=== PATIENT | male | born 1985 | race Caucasian/White ===

== ENCOUNTER → 2020-03-11 12:02 | Outpatient (CLI) | payer OTHER, SELFPAY ==
--- NOTE | ~2020-03-11 | XR_ITS ---
EXAMINATION: XR patella LT DATE: 03/11/2020 12:32 INDICATION: Pain distal to left patella. TECHNIQUE: 2 views of left patella were obtained. COMPARISON: None. FINDINGS: Bone alignment is normal. No fracture. There is mild osteoarthritis of patellofemoral geri rtment. No knee joint effusion. IMPRESSION: 1. Mild left knee osteoarthritis. Reviewed, dictated and finalized at location A.
--- NOTE | ~2020-03-11 | XR_ITS ---
EXAMINATION: XR knee LT min 4V DATE: 03/11/2020 12:31 INDICATION: Left knee pain. TECHNIQUE: 4 views of left knee were obtained. COMPARISON: None. FINDINGS: Bone alignment is normal. No fracture. There is mild tricompartmental osteoarthritis. No kn ee joint effusion. IMPRESSION: 1. Mild left knee osteoarthritis. Reviewed, dictated and finalized at location A.
== END ==
PROVIDERS: PCP Internal Medicine; Visit Provider Internal Medicine
DX: M17.12 Unilateral primary osteoarthritis, left knee (principal)
CPT/HCPCS: 73560; 73564

== ENCOUNTER 2020-05-25 08:46 | Emergency (ER) | payer OTHER, SELFPAY ==
--- NOTE | ~2020-05-25 | XR_ITS ---
EXAMINATION: XR chest 2V EXAM DATE: 05/25/2020 09:42 INDICATION: Mid chest pain. TECHNIQUE: Frontal and lateral projections of the chest obtained and reviewed. There is no prior julien dy for comparison. FINDINGS: The lungs are clear. There are no pleural effusions. The cardiomediastinal silhouette is within normal limits. There is no pneumothorax suspected. The bones and soft tissues are unremarkab le. IMPRESSION: Normal chest x-ray exam. Reviewed, dictated and finalized at location B. IMPRESSION: Normal chest x-ray exam.
--- NOTE | 2020-05-25 08:57 | ED.ABDPAIN ---
HPI - Abdominal Pain General Chief Complaint: Abdominal Pain Stated Complaint: epigastric pain Time Seen by Provider: 05/25/20 08:56 Source: patient Mode of arrival: ambulatory Limitations: no limitations History of Present Illness HPI narrative: Patient is a 34-year-old male who presents for evaluation epigastric discomfort and chest pain. Patient states discomfort have been present over the past 24 hours. Pain initially began yesterday morning, felt in the epigastrium after patient ate breakfast and took some of his vitamin supplements. Patient states he has been able to tolerate oral intake, feels improved when he is up and moving, but pain worsens when he is laying flat or when he inspires. He denies cough or shortness of breath. He denies nausea or vomiting. He states he feels as if he has a bubble in his lower chest. No recent car or air travel. No fever, chills, congestion. No history of recent surgeries. Related Data Allergies Allergy/AdvReac Type Severity Reaction Status Date / Time Penicillins AdvReac Mild Diarrhea Verified 03/17/20 16:33 Review of Systems Review of Systems: Narrative: CONSTITUTIONAL: Denies fever, chills, or sweats. EYES: Denies visual changes, redness, or discharge. ENT: Denies rhinorrhea, congestion, sore throat, or otalgia. CARDIOVASCULAR: Reports chest pain without palpitations or edema RESPIRATORY: Denies cough or dyspnea. GASTROINTESTINAL: Reports epigastric abdominal pain, nausea, vomiting, or diarrhea. GENITOURINARY: Denies dysuria or hematuria. SKIN: Denies rash or itching. MUSCULOSKELETAL: Denies back pain, joint pain, or myalgia. NEUROLOGIC: Denies headache, numbness, or weakness. REPLACED BY [facility] Past Medical History Medical History (Updated 05/25/20 @ 11:15 by Sandhya Marcum MD) Hypogonadotropic hypogonadism in male Primary localized osteoarthritis of left knee Family History Family History (Updated 04/17/14 @ 07:13 by DOCTOR UNKNOWN) Mother Family history of multiple sclerosis Social History Social History Smoking status: Never smoker Second hand tobacco smoke exposure: No Alcohol intake: never Exam Narrative: Exam Narrative: GENERAL: Awake, alert, conversant HEAD: Normocephalic, atraumatic. EYES: PERRLA and EOMI. ENT: Nares clear, no rhinorrhea or epistaxis. Mucous membranes moist. NECK: Supple. CHEST: No respiratory distress, breathing even and non labored, no chest wall tenderness HEART: Regular rate, sinus rhythm ABDOMEN:Non distended, non tender, no epigastric tenderness EXTREMITIES: Normal range of motion. No edema. SKIN: Warm, dry, no rash. NEURO:No focal deficits. Alert and oriented x3 Course Vital Signs Vital signs: Vital Signs Temperature 36.9 C 05/25/20 08:59 Pulse Rate 85 05/25/20 08:59 Respiratory Rate 17 05/25/20 08:59 Blood Pressure 126/74 05/25/20 08:59 Pulse Oximetry 100 05/25/20 08:59 Temperature 36.9 C 05/25/20 08:59 Pulse Rate 85 05/25/20 08:59 Respiratory Rate 17 05/25/20 08:59 Blood Pressure 126/74 05/25/20 08:59 Pulse Oximetry 100 05/25/20 08:59 MDM - Abdominal Pain MDM Narrative Medical decision making narrative: Patient's EKG and labs are without significant high risk changes. Patient does have an S1Q3T3, thus I did obtain a d-dimer which is not elevated. Patient without any hypoxia, no risk factors for DVT, low risk Via Wells criteria thus we will not obtain a CTA given dimer is negative. Cardiac risk factors reviewed. Patient is felt low risk for ACS and reasonable for further risk stratification testing as an outpatient. Pain was not sudden or maximal or onset without tearing or ripping quality. Very much within a 4 to 6-hour time window given symptoms have been present over 24 hours and initial troponin is negative. No other signs or symptoms to suggest aortic dissection. No pneumonia seen on evaluation today. Patient able to tole
[2020-05-25 08:59] VITALS: BP 126/74; PULSE 85; RESP 17; TEMP 36.9; O2SAT 100
--- NOTE | 2020-05-25 09:16 | ECG_ITS ---
Measurements Intervals Quinter Rate: 78 P: 54 DC: 184 QRS: 24 QRSD: 102 T: -2 QT: 347 QTc: 397 Interpretive Statements SINUS RHYTHM BORDERLINE ST-T WAVE ABNORMALITY- INFERIOR LEADS BORDERLINE ECG Electronically Signed On 05-25-2020 9:54:53 CDT by Bhavesh Addison D.O.
[2020-05-25] MEDS: BELLADONNA ALK/PHENOB ELIX 10 ML, MAG HYDROX/ALUMINUM HYD/SIMETH 30 ML, LIDOCAINE HCL 2... PO (09:31)
--- NOTE | 2020-05-25 09:34 | PC.NURSE ---
Patient to X-ray.
[2020-05-25] MEDS: FAMOTIDINE 20 MG/2 ML VIAL IV PUSH (09:56)
[2020-05-25 10:03] LABS: Basophils Absolute Auto 0.1 K/mm3 (0.0-0.1); Basophils Percent Auto 0.6 % (0.2-1.2); Eosinophils Absolute Auto 0.1 K/mm3 (0-0.3); Eosinophils Percent Auto 1.8 % (0-4.4); Hematocrit 48.9 % (42.0-52.0); Hemoglobin 16.7 g/dL (14.0-18.0); Immature Granulocyte Absolute 0.03 K/mm3 (0.00-0.031); Immature Granulocyte Percent A 0.4 % (0-0.5); Lymphocytes Absolute Auto 0.93 K/mm3 (0.9-3.2); Lymphocytes Percent Auto 11.7 % (18.3-44.2); Mean Corpuscular HGB Conc 34.2 g/dl (32-36); Mean Corpuscular Hemoglobin 30.8 pg (26-34); Mean Corpuscular Volume 90.2 fl (80-100); Mean Platelet Volume 10.4 fl (7.4-10.4); Monocytes Percent Auto 12.6 % (2.6-8.5); Neutrophils Absolute Auto 5.8 K/mm3 (1.3-6.7); Neutrophils Percent Auto 72.9 % (45.5-73.1); Platelet Count Result 217 k/mm3 (150-375); Red Blood Count 5.42 M/mm3 (4.6-6.20); White Blood Count 7.9 K/mm3 (4.5-10.0)
[2020-05-25 10:15] LABS: Alanine Aminotransferase 117 U/L (4-50); Albumin Level 4.5 g/dL (3.5-5.1); Alkaline Phosphatase 57 U/L (38-126); Anion Gap 7 mmol/L (8-16); Aspartate Amino Transferase 86 U/L (17-59); Bilirubin,Total 0.5 mg/dL (0.2-1.3); Blood Urea Nitrogen 21 mg/dL (9-20); Calcium 9.6 mg/dL (8.4-10.2); Carbon Dioxide 29 mmol/L (22-30); Chloride 100 mmol/L (98-107); Estimated CRCL calculation 462 ml/min; Estimated Glomerular Filt Rate 58; Glucose 86 mg/dL (75-110); Lipase 131 U/L (23-300); Potassium 4.3 mmol/L (3.4-5.0); Sodium 136 mmol/L (137-145)
[2020-05-25 10:18] LABS: INR 1.1; Partial Thromboplastin Time 27.5 SECONDS (22.3-36.8); Prothrombin Time 13.4 Seconds (11.1-14.7)
[2020-05-25 10:21] LABS: D Dimer 0.41 ug/mL (<0.48)
[2020-05-25 10:26] LABS: Troponin I < 0.012 ng/mL (0.000-0.034)
[2020-05-25 11:22] VITALS: BP 128/80; PULSE 80; RESP 18; TEMP 36.7; O2SAT 99
== END 2020-05-25 11:23 | disposition home or self-care (01) ==
PROVIDERS: Emergency Provider Emergency Medicine; PCP Internal Medicine
DX: R10.13 Epigastric pain (principal); M17.12 Unilateral primary osteoarthritis, left knee; E23.0 Hypopituitarism
CPT/HCPCS: 36415; 71046; 80053; 83690; 84484; 85025; 85380; 85610; 85730; 93005; 96374; 99284; A9270

== ENCOUNTER 2020-06-16 01:20 | Outpatient (CLI) | payer OTHER, SELFPAY ==
[2020-06-16 19:05] LABS: SARS-CoV-2 RNA PCR Negative
== END 2020-06-16 01:21 | disposition home or self-care (01) ==
LOC: ANHCOVIDDT 01:20
PROVIDERS: PCP Internal Medicine; Visit Provider Internal Medicine Gastroenterology
DX: Z01.812 Encounter for preprocedural laboratory examination (principal); Z20.828 Contact with and (suspected) exposure to other viral communicable diseases
CPT/HCPCS: 87635; C9803; U0003

== ENCOUNTER 2020-06-18 01:18 | Day surgery (SDC) | payer OTHER, SELFPAY ==
[2020-06-12 08:33] VITALS: BMI 34.4
--- NOTE | 2020-06-17 08:55 | WPDANESEPPF ---
Anes - Initial Pre Proc Eval Procedure: Operation Date: 06/18/20 10:00 Proposed Procedures p Esophagogastroduodenoscopy - Kannan Moya MD Date/Time: 06/17/20 08:55 Surgeon: Kannan Moya MD Pre Op Diagnosis: dysphagia Patient Data Age: 34 Gender: M Height: 1.8 m Weight: 112 kg Allergies Allergy/AdvReac Type Severity Reaction Status Date / Time Penicillins AdvReac Mild Diarrhea Verified 06/18/20 09:32 Home Medications Medication Instructions Recorded Confirmed Type cyclobenzaprine [Flexeril] 5 mg PO HS 06/12/20 06/18/20 History Patient hx anesthesia problems: none Family hx anesthesia problems: none PMFSH Past Medical History Medical History (Updated 06/17/20 @ 08:55 by Giuseppe Sterling DO) GERD (gastroesophageal reflux disease) Hiccups Hypogonadotropic hypogonadism in male ANILA (obstructive sleep apnea) Primary localized osteoarthritis of left knee Family History Family History (Updated 04/17/14 @ 07:13 by DOCTOR UNKNOWN) Mother Family history of multiple sclerosis Social History Social History Smoking status: Never smoker Second hand tobacco smoke exposure: No Alcohol intake: never Substance use: never Substance use type: does not use Spiritual care concerns: No Anes - Eval Final PreProcedure Day of Procedure 06/17/20 08:55 Patient weight: obese Heart: regular rate and rhythm Lungs: clear to auscultation and normal air movement Airway: Mallampati scale class II Neurological: alert and oriented Last oral intake: >/= 8 hours ASA classification: III Emergent: no Anesthetic plan: proceed Anesthesia type and monitoring: general GIVS and standard monitoring Informed Consent: The patient's anesthetic plan and its attendant risks and benefits were discussed with the patient/family/POA. Questions were solicited and answers provided to the satisfaction of the patient/family/POA.
[2020-06-18 09:34] VITALS: BP 121/50; PULSE 78; RESP 18; TEMP 36.8; O2SAT 97
[2020-06-18] MEDS: LACTATED RINGERS 1,000 ML 150 ML IV CONT (09:41)
--- NOTE | 2020-06-18 10:17 | P.CONGI_ITS ---
Assessment and Plan Assessment and plan (1) Dysphagia: Code(s): R13.10 - Dysphagia, unspecified Status: Acute Assessment and Plan: Patient has gradually improving difficulty swallowing. Symptoms appear most consistent with pill esophagitis . Likely related to pill remain and mid esophagus. Plan is for EGD to evaluate and exclude any ongoing disease. Further recommendations may be given after endoscopy. Saw food advancing to regular diet in an acids are encouraged in the interim. GI Consult Note Consult date/time: 06/18/20 10:17 HPI: David Romero is a 34 year old male Complains of hiccups that lasted for several weeks. Symptoms seemed to begin after taking a body building pill. Patient subsequently had discomfort in the chest on swallowing. Associated with regurgitation. Hiccups occurred for approximately 10 days. States he had a pill stuck in the low mid chest. He subsequent to that developed painful swallowing. Patient initially treated with Prilosec sac and steroids for 1 week. He states the symptoms have gradually improved. He has minimal dys phagia. Minimal discomfort at present. Denies any weight loss or bleeding. He presents today for EGD to evaluate more thoroughly. [facility] Past Medical History Medical History GERD (gastroesophageal reflux disease) Hiccups Hypogonadotropic hypogonadism in male ANILA (obstructive sleep apnea) Primary localized osteoarthritis of left knee Family History Family History (Updated 04/17/14 @ 07:13 by DOCTOR UNKNOWN) Mother Family history of multiple sclerosis Social History Social History Smoking status: Never smoker Second hand tobacco smoke exposure: No Alcohol intake: never Substance use: never Substance use type: does not use Spiritual care concerns: No Meds Home Medications and Allergies Home Medications Medication Instructions Recorded Confirmed Type cyclobenzaprine [Flexeril] 5 mg PO HS 06/12/20 06/18/20 History Allergies Allergy/AdvReac Type Severity Reaction Status Date / Time Penicillins AdvReac Mild Diarrhea Verified 06/18/20 09:32 Vital Signs Vital Signs - 24 hr 06/18/20 09:34 Temperature 98.2 F Pulse Rate 78 Respiratory Rate 18 Blood Pressure 121/50 L Pulse Oximetry 97 Exam Narrative: Exam Narrative: Physical exam reveals patient to be alert. Vital signs stable. HEENT exam unremarkable. Lungs are clear to auscultation and percussion. Heart is without murmur or extra sounds. Abdominal exam bowel sounds are present soft nontender with no organomegaly. Digital external rectal exam deferred at this time.
[2020-06-18 10:48] VITALS: BP 105/73; PULSE 82; RESP 22; O2SAT 99
[2020-06-18 10:58] VITALS: BP 101/74; PULSE 77; RESP 17; O2SAT 99
[2020-06-18 11:07] VITALS: BP 108/65; PULSE 78; RESP 21; O2SAT 98
== END 2020-06-18 11:23 | disposition home or self-care (01) ==
PROVIDERS: PCP Internal Medicine; Visit Provider Internal Medicine Gastroenterology
PROC: 0DJ08ZZ Inspection of Upper Intestinal Tract, Via Natural or Artificial Opening Endoscopic (ICD-10-PCS; CPT 43235; principal; 2020-06-18 10:00)
DX: K21.00 Gastro-esophageal reflux disease with esophagitis, without bleeding (principal); Q39.4 Esophageal web; K22.10 Ulcer of esophagus without bleeding; G47.33 Obstructive sleep apnea (adult) (pediatric)
CPT/HCPCS: 43239; 43450; 88305; 88312; J7120

== ENCOUNTER 2021-07-21 13:20 | Outpatient (CLI) | payer OTHER, SELFPAY ==
--- NOTE | ~2021-07-21 | XR_ITS ---
EXAMINATION: XR hand RT min 3V DATE: 07/21/2021 14:00 INDICATION: Right hand osteoarthritis. TECHNIQUE: 3 views of right hand were obtained. COMPARISON: None. FINDINGS: Bone alignment is normal. No fracture. There is mild osteoarthritis of first carpometacarpa l joint and first metacarpophalangeal joint. IMPRESSION: 1. Mild polyarticular osteoarthritis. Reviewed, dictated and finalized at location A. ANALYST
== END 2021-07-21 13:21 | disposition home or self-care (01) ==
PROVIDERS: Visit Provider Plastic Surgery
DX: M19.041 Primary osteoarthritis, right hand (principal)
CPT/HCPCS: 73130

== ENCOUNTER → 2021-09-30 16:12 | Outpatient (CLI) | payer OTHER, SELFPAY ==
--- NOTE | ~2021-09-30 | MR_ITS ---
EXAMINATION: MR hand RT wo con DATE: 09/30/2021 17:11 INDICATION: Generalized right hand swelling with pain making a fist since third digit trigger finger surgery TECHNIQUE: Magnetic resonance imaging (MRI) of the right hand was performed without intravenous contr ast to include the metacarpals and digits. Sequences included axial, sagittal and coronal T1-weighted FSE and T2-weighted FS FSE and sagittal and coronal fluid sensitive FSE STIR. COMPARISON: Right hand radiographs dated 07/21/2021 FINDINGS: Bone alignment is normal. No fracture or pathologic marrow replacing process. Joint spaces appear rel atively preserved with no joint effusions. There is mild thickening of the radial collateral ligament at the third metacarpophalangeal joint. The remaining collateral ligament complex at the metacarpoph alangeal and interphalangeal joints appear normal. There is diffuse thickening of the A1 flexor pulle y palmar to the third carpophalangeal joint consistent with likely scarring related to prior reported carlos release. There is a sagittally oriented longitudinal split tear extending for approximately 2 .5 cm proximal to distal along the flexor digitorum superficialis tendon to the third digit also cent ered at level of the metacarpophalangeal joint. There is fusiform thickening of the flexor digitorum profundus tendon distally at the level of the mid diaphysis of the third proximal phalanx. Remainder of the visualized flexor and extensor tendons are normal. Intrinsic musculature of the hand is unrema rkable. IMPRESSION: 1. Thickening of the A1 carols at the level of the third metacarpophalangeal joint consistent with ei ther stenosing tenosynovitis or scarring related to subsequent reported release. 2. short longitudinal split tear of the third digit flexor digitorum superficialis tendon at the same level of the metacarpophalangeal joint. 3. Fusiform thickening of the more distal third flexor digitorum profundus tendon at the level of the mid diaphysis of the proximal phalanx. Reviewed, dictated and finalized at location A. TESTER IMPRESSION: 1. Thickening of the A1 carlos at the level of the third metacarpophalangeal edmundo int consistent with either stenosing tenosynovitis or scarring related to subse quent reported release. 2. short longitudinal split tear of the third digit flexor digitorum superficia lis tendon at the same level of the metacarpophalangeal joint. 3. Fusiform thickening of the more distal third flexor digitorum profundus tend on at the level of the mid diaphysis of the proximal phalanx.
== END ==
PROVIDERS: Visit Provider Plastic Surgery
DX: S66.112A Strain of flexor muscle, fascia and tendon of right middle finger at wrist and hand level, initial encounter (principal)
CPT/HCPCS: 73218

== ENCOUNTER 2021-11-05 11:15 | Emergency (ER) | payer OTHER, SELFPAY ==
[2021-11-05 11:20] VITALS: BP 126/65; PULSE 84; RESP 20; TEMP 36.8; O2SAT 99
--- NOTE | 2021-11-05 13:11 | ED.MALEGU ---
HPI - Male Genitourinary General Chief complaint: Urogenital-Male Stated complaint: Vomiting/Nausea Time Seen by Provider: 11/05/21 13:11 Source: patient and RN notes reviewed Mode of arrival: ambulatory Limitations: no limitations History of Present Illness HPI Narrative: 35-year-old male presented for complaint of concern for dehydration due to dark urine. He states he drinks 2 gallons of water a day. Endorses one episode of vomiting about 2 nights ago. This was followed by intermittent nausea and fevers/sweats. Endorses intermittent cramping and occasional shortness of breath. States last week he had an episode of abdominal pain. Denies cough, chest pain, diarrhea, dysuria or concern for std. Denies increase in ibuprofen or muscle building supplements. Denies sick contacts. He is not vaccinated for flu or Covid. Related Data Allergies Allergy/AdvReac Type Severity Reaction Status Date / Time Penicillins AdvReac Mild Diarrhea Verified 11/05/21 11:39 Review of Systems Review of Systems: CONSTITUTIONAL: Endorses body aches, fever, chills, sweats. CARDIOVASCULAR: Denies chest pain, palpitations, or edema. RESPIRATORY: Denies cough or dyspnea. GASTROINTESTINAL: Endorses abdominal pain, nausea, vomiting, or diarrhea. GENITOURINARY: Denies dysuria, frequency, urgency, hematuria, discharge, flank pain SKIN: Denies rash, itching, or wounds. MUSCULOSKELETAL: Denies back pain or myalgia. [facility] Past Medical History Medical History GERD (gastroesophageal reflux disease) erosive Esohpagealitis Esophageal web GERD Dr. Kannan Moya 06/18/2020 Hiccups Hypogonadotropic hypogonadism in male ANILA (obstructive sleep apnea) Primary localized osteoarthritis of left knee Family History Family History Mother Family history of multiple sclerosis Social History Social History Smoking status: Never smoker Second hand tobacco smoke exposure: No Alcohol intake: never Substance use: never Substance use type: does not use Spiritual care concerns: No Comments At time of signature, I have reviewed and agree with nursing past medical, surgical, social and family history unless otherwise noted. Please see nursing chart for further information. There is no relevant family history pertinent to the presenting complaint Exam Narrative: GENERAL: Well-appearing and in no acute distress. HEAD: Normocephalic EYES: EOMI. . ENT: Mucous membranes pink and moist. NECK: Normal AROM. Supple. CHEST: No respiratory distress. Clear to auscultation. HEART: Regular rate and rhythm. ABDOMEN: Soft, nontender, nondistended, normal active bowel sounds. No CVA tenderness MUSCULOSKELETAL: No bony tenderness. SKIN: Sweaty, Warm NEURO: No focal deficits. Alert and oriented x3. Gait steady. PSYCH: Normal affect. No signs of depression or anxiety. Course Course Emergency Course: Patient is aware of diagnosis, understands and agrees to treatment plan. Anticipatory guidance given. Patient agrees to follow-up as directed and is aware of reasons to seek care at the emergency department. Portions of this record may have been created with voice recognition software Level of Care: Express Care Visit Vital Signs Vital signs: Vital Signs Temperature 98.3 F 11/05/21 11:20 Pulse Rate 84 11/05/21 11:20 Respiratory Rate 20 11/05/21 11:20 Blood Pressure 126/65 11/05/21 11:20 Pulse Oximetry 99 11/05/21 11:20 Temperature 98.3 F 11/05/21 11:20 Pulse Rate 84 11/05/21 11:20 Respiratory Rate 20 11/05/21 11:20 Blood Pressure 126/65 11/05/21 11:20 Pulse Oximetry 99 11/05/21 11:20 Reviewed MDM - Male Genitourinary MDM Narrative Medical decision making narrative: flu and covid neg Exam findings and UA show no acute concerns ; no hematuria. pa
== END 2021-11-05 14:05 | disposition home or self-care (01) ==
PROVIDERS: Emergency Provider Nurse Practitioner Family
DX: R82.90 Unspecified abnormal findings in urine (principal); R25.2 Cramp and spasm; Z20.822 Contact with and (suspected) exposure to COVID-19; K21.9 Gastro-esophageal reflux disease without esophagitis; G47.33 Obstructive sleep apnea (adult) (pediatric); M17.12 Unilateral primary osteoarthritis, left knee
CPT/HCPCS: 81003; 87426; 87804; 99213; C9803; G0463

== ENCOUNTER 2021-12-29 19:41 | Emergency (ER) | payer OTHER, SELFPAY ==
[2021-12-29 19:59] VITALS: BP 133/89; PULSE 83; RESP 16; TEMP 36.7; O2SAT 98
--- NOTE | 2021-12-29 20:15 | ED.LOWEXIN ---
HPI - Extremity Injury (Lower) General Chief Complaint: Extremity Injury, Lower Stated Complaint: leg injury Time Seen by Provider: 12/29/21 20:12 Source: patient Mode of arrival: ambulatory Limitations: no limitations History of Present Illness HPI Narrative: Patient is a 36-year-old male who presents the ED with report of left posterior leg pain. Patient reports he was playing softball tonight and planted his L foot to begin running when he immediately felt a pop in his left hamstring. He felt extreme pain and has been unable to ambulate or bear weight on his left lower extremity since then. Patient has not taken anything for pain prior to arrival, but has been icing his left posterior leg. He did not fall when the injury occurred. No back pain, head injury, or loss of conscious. No other injuries. Patient is very active and frequently works out. Related Data Allergies Allergy/AdvReac Type Severity Reaction Status Date / Time Penicillins AdvReac Mild Diarrhea Verified 12/29/21 20:02 Review of Systems Review of Systems: CARDIOVASCULAR: Denies chest pain. RESPIRATORY: Denies dyspnea. MUSCULOSKELETAL: Reports pain to left posterior leg, trouble ambulating. Denies back pain. NEUROLOGIC: Denies HI, LOC, headache, numbness. All systems reviewed & are unremarkable except as noted in HPI and below PMFSH Past Medical History Medical History GERD (gastroesophageal reflux disease) erosive Esohpagealitis Esophageal web GERD Dr. Kannan Moya 06/18/2020 Hiccups Hypogonadotropic hypogonadism in male ANILA (obstructive sleep apnea) Primary localized osteoarthritis of left knee Surgical History Surgical History (Updated 12/29/21 @ 20:50 by Esha Haines PA-C) History of orthopedic surgery Family History Family History Mother Family history of multiple sclerosis Social History Social History Smoking status: Never smoker Second hand tobacco smoke exposure: No Alcohol intake: never Substance use: never Substance use type: does not use Spiritual care concerns: No Exam Narrative: GENERAL: Well appearing, well-nourished, non-toxic, in no acute distress. HEAD: Normocephalic, atraumatic. NECK: Supple. No adenopathy, no masses. RESPIRATORY: Airway patent, respirations nonlabored. CARDIOVASCULAR: Regular rate and rhythm without murmurs, rubs, or gallops. Peripheral pulses 2+ and equal bilaterally. MUSCULOSKELETAL: Tenderness to palpation in left posterior proximal thigh below gluteal crease with area of tender swelling medially. No bony tenderness to palpation of left knee joint, left hip. Full nonpainful flexion of L knee. Pain with full extension of L knee. Pain with extension and flexion of L hip. SKIN: Warm, dry, normal color. No rashes. NEURO: A&O X3. Speech clear. Cranial nerves II-XII grossly intact. Steady gait. No ataxic movements. PSYCHIATRIC: Appropriate mood and affect. Normal interaction. Course Vital Signs Vital signs: Vital Signs Temperature 98.1 F 12/29/21 19:59 Pulse Rate 83 12/29/21 19:59 Respiratory Rate 16 12/29/21 19:59 Blood Pressure 133/89 12/29/21 19:59 Pulse Oximetry 98 12/29/21 19:59 Temperature 98.1 F 12/29/21 19:59 Pulse Rate 83 12/29/21 19:59 Respiratory Rate 16 12/29/21 19:59 Blood Pressure 133/89 12/29/21 19:59 Pulse Oximetry 98 12/29/21 19:59 MDM - Extremity Injury (Lower) MDM Narrative Medical decision making narrative: Patient presented to ED with posterior L thigh pain that began after hearing a pop while running while playing softball tonight. Vital signs stable upon arrival. Patient unable to fully ambulate on left lower extremity due to pain and initially had left knee held in flexion upon evaluation. Did have area of tenderness and swelling to L posterior medial pro
[2021-12-29] MEDS: KETOROLAC (*BKC) 60 MG/2 ML VIAL IM (21:08)
[2021-12-29] MEDS: HYDROcodone/acetaminophen (*CRX) 5-325 MG TABLET 1 TAB PO (21:36)
--- NOTE | 2021-12-29 21:40 | PC.NURSE ---
chinyere wrap and immobilizer placed to left leg. patient able to demonstrate proper crutch use prior to discharge
== END 2021-12-29 21:47 | disposition home or self-care (01) ==
PROVIDERS: Emergency Provider Emergency Medicine; PCP Physician Assistant
DX: S79.922A Unspecified injury of left thigh, initial encounter (principal); K21.00 Gastro-esophageal reflux disease with esophagitis, without bleeding; K22.10 Ulcer of esophagus without bleeding; G47.33 Obstructive sleep apnea (adult) (pediatric); M17.12 Unilateral primary osteoarthritis, left knee; Y93.64 Activity, baseball; X50.9XXA Other and unspecified overexertion or strenuous movements or postures, initial encounter
CPT/HCPCS: 96372; 99283; A9270; J1885

== ENCOUNTER 2022-12-30 09:04 | Outpatient (CLI) | payer OTHER, SELFPAY ==
--- NOTE | ~2022-12-30 | XR_ITS ---
Lumbosacral Spine: AP and lateral views Clinical History: Pain Findings: The normal lordotic curve is maintained. The vertebral bodies and posterior elements are i ntact. The intervertebral disc spaces are preserved. The sacroiliac joints are normally outlined. Impression: No significant abnormality. Reviewed, dictated and finalized at [facility]. Impression: No significant abnormality.
== END 2022-12-30 09:05 | disposition home or self-care (01) ==
PROVIDERS: PCP Physician Assistant; Visit Provider Physician Assistant
DX: M25.562 Pain in left knee (principal); M54.16 Radiculopathy, lumbar region
CPT/HCPCS: 72100; 73564

== ENCOUNTER 2023-02-09 14:45 | Outpatient (CLI) | payer OTHER, SELFPAY ==
--- NOTE | ~2023-02-09 | MR_ITS ---
MRI of the left knee Clinical history: Pain Technique: Coronal proton density and proton density-weighted images, sagittal proton-density and T2 fat-sat images, and axial proton-density fat-saturated images were acquired. Findings: Anterior and posterior cruciate ligaments are intact. Medial collateral ligament and the la teral collateral ligament complex are intact. Popliteus tendon is intact. There is horizontal/oblique tear of the posterior horn of the medial meniscus. No lateral meniscal te ar seen. Articular cartilage is relatively well preserved in the medial and lateral compartments. There is mod erate to high-grade chondromalacia along the central aspect of the femoral trochlea. There is focal m ild chondromalacia along the medial patellar facet. Minimal tricompartmental osteophytes are present. Extensor mechanism is intact. No significant joint effusion or Barksdale's cyst. Impression: Horizontal/oblique tear of the posterior horn of the medial meniscus. Mild degenerative change throughout the knee overall, as detailed above, with worst chondromalacia at the central aspect of the femoral trochlea. Reviewed, dictated and finalized at location M. Impression: Horizontal/oblique tear of the posterior horn of the medial meniscus. Mild degenerative change throughout the knee overall, as detailed above, with w orst chondromalacia at the central aspect of the femoral trochlea.
== END 2023-02-09 14:46 | disposition home or self-care (01) ==
PROVIDERS: PCP Physician Assistant; Visit Provider Physician Assistant
DX: S83.242A Other tear of medial meniscus, current injury, left knee, initial encounter (principal); X58.XXXA Exposure to other specified factors, initial encounter
CPT/HCPCS: 73721

== ENCOUNTER 2025-08-05 19:17 | Emergency (ER) | payer OTHER, SELFPAY ==
--- OUTSIDE RECORDS SUMMARY | 2025-05-26 10:15 | XMS_ITS ---
Author Organization [facility] [employer] Address [address] [address] Care Team Providers Care Physical Therapy Resident Name Role Phone Colton Khan PA-C Primary Care Provider Unavail Karthikeyan Rosales Unavailable [phone] REASON FOR VISIT follow-up Social History Sex Assigned At : Social History Observation Description Sex Assigned At Male Encounters Encounter Location Date Provider Diagnosis [facility], [facility] [address] [facility] [address] [place] [address] 05/26/2025 Karthikeyan Turcios Plan Of Treatment Next Appt Details Provider Name:Karthikeyan Turcios, 08/12/2025 04:00:00 PM, [address], [place] [address], [place], [address], Progress Notes * David SCHULTEDOB: [birth year] (39 yo M)Acc No.[id number]:05/26/2025 Patient: David Cleveland Provider: GLADYS Griffin :1985 A ge:39 Y S ex:Male Date:05/26/2025 Phone: Address:[address], [id number] Pcp:Colton Khan PA-C Subjective: * Chief Complaints: * F ollow-up * HPI: T ransition of Care: 05/12/2025 BDI: 24, PHQ-9: SERGE-7: - start Bupropion XL 150 mg for 7 days then increase to 300 mg daily - start trazodone 50 mg HS. - provided marijuana education and encoruaged reduction - provided ADHD non-pharmocological intervention sheet - provided list of therapists. - encouraged caffeine reduction and to get PCP for testosterone treatment. * Electronic signature of GLADYS Gordon on 08/05/2025 at 07:23 PM TENTER Sign off status: Pending * Provider: GLADYS Griffin Date: 1 Generated for Ana gonzalez/Seferino/Tiago on: 1 10/06/2024 07:23 PM TENTER
--- OUTSIDE RECORDS SUMMARY | 2025-08-05 19:22 | XMS_ITS | Clinical Summary ---
Author Organization [facility] Address [address] [place] [address] Care Team Providers Care Laser Operator Name Role Phone Colton Khan Primary Care Provider [phone] Allergies Active Allergy Reactions Criticality Noted Date Comments Penicillins Medications RABEprazole DR (ACIPHEX) 20 mg EC tablet Take 1 tablet (20 mg total) by mouth daily 09/16/2023 Active ibuprofen (ADVIL,MOTRIN) 600 mg tablet Take 1 tablet (600 mg total) by mouth 4 (four) times a day as needed for pain 09/20/2023 Active Active Problems Problem Noted Date Diagnosed Date Acute chest pain 09/18/2023 Sprain of medial collateral ligament of knee 01/2017 Tear of medial meniscus of knee 06/24/2016 Family History Medical History Relation Name Comments Atrial fibrillation Mother Family h istory of atrial fibrillation - (Added by TW Conv) Relation Name Status Comments Mother Social History Tobacco Use Types Packs/Day Years Used Date Smoking Tobacco: Never Smokeless Tobacco: Never Tobacco Cessation:Counseling Given: Not Answered Personal Safety Answer Date Recorded Have you ever been in or are you currently in a harmful physical or emotional relationship or is someone making you feel afraid or unsafe? Denies 09/18/2023 Sex and Gender Information Value Date Recorded Sex Assigned at Not on file Legal Sex Male 8:58 AM ANGER CONTROL COUNSELOR Gender Identity Not on file Sexual Orientation Not on file Last Filed Vital Signs Vital Sign Reading Time Taken Comments Blood Pressure 126/71 09/20/2023 9:30 AM ANGER CONTROL COUNSELOR Pulse 57 09/20/2023 9:00 AM ANGER CONTROL COUNSELOR Temperature 36.6 C (97.8 F) 09/20/2023 9:30 AM ANGER CONTROL COUNSELOR Respiratory Rate 19 09/20/2023 9:30 AM ANGER CONTROL COUNSELOR Oxygen Saturation 99% 09/20/2023 9:30 AM ANGER CONTROL COUNSELOR Inhaled Oxygen Concentration - - Weight 115.5 kg (254 lb 10.1 oz) 09/18/2023 8:55 PM ANGER CONTROL COUNSELOR Height 180.3 cm (5' 11) 09/18/2023 8:55 PM ANGER CONTROL COUNSELOR Body Mass Index 35.51 09/18/2023 8:55 PM ANGER CONTROL COUNSELOR Plan of Treatment Health Maintenance Due Date Last Done Comments Depression Screening 1985 Hepatitis C Screening 1985 Varicella Vaccines (1 of 2 - 13+ 2-dose series) 1997 Regular Well Visit/Exam 18-64 2002 HPV Vaccines (1 - 3-dose SCD M series) 12/19/2011 Influenza Vaccine (#1) 2025 DTaP/Tdap/Td Vaccine (2 - Td or Tdap) 01/23/2029 01/23/2019 Hepatitis B Screening Completed 09/13/2023 Pneumococcal vaccine <65 Aged Out No longer eligible based on patient's age to complete this topic Insurance [facility] H[facility]PPO Address: [facility] [address] [place] [address] CHOICE PLUS [facility] H[facility]/PPO Address: [place] [address] Advance Directives For more information, please contact: [phone] * Full Code (Latest Code Status on File) Date Activated Date Inactivated Comments 09/18/2023 9:11 PM 09/20/2023 3:42 PM Care Teams Laser Operator Relationship Specialty Start Date End Date Colton Khan PA [address] [place] [address] PCP - General Family Practice 09/08/23
--- OUTSIDE RECORDS SUMMARY | 2025-08-05 19:23 | XMS_ITS | Clinical Summary ---
Author Organization [facility] Address [address] [place] [address] Phone Care Team Providers Care Retail Route Supervisor Name Role Phone Colton Khan Primary Care Provider [phone] Allergies Active Allergy Reactions Criticality Noted Date Comments Penicillin G Diarrhea 07/10/2021 Medications No known medications Social History Tobacco Use Types Packs/Day Years Used Date Smoking Tobacco: Never Smokeless Tobacco: Never Tobacco Cessation:Counseling Given: Not Answered Alcohol Use Standard Drinks/Week Comments Never 0 (1 standard drink = 0.6 oz pur e alcohol) Sex and Gender Information Value Date Recorded Sex Assigned at Male 09/02/2023 12:42 AM MATCH MARKER Legal Sex Male 7:54 AM MATCH MARKER Gender Identity Male 09/02/2023 12:42 AM MATCH MARKER Sexual Orientation Not on file Last Filed Vital Signs Vital Sign Reading Time Taken Comments Blood Pressure 149/78 09/02/2023 3:45 AM MATCH MARKER Pulse 64 09/02/2023 3:45 AM MATCH MARKER Temperature 37.3 C (99.1 F) 09/02/2023 12:37 AM MATCH MARKER Respiratory Rate 19 09/02/2023 3:45 AM MATCH MARKER Oxygen Saturation 97% 09/02/2023 3:45 AM MATCH MARKER Inhaled Oxygen Concentration - - Weight 120.7 kg (266 lb) 09/02/2023 12:37 AM MATCH MARKER Height 180.3 cm (5' 11) 09/02/2023 12:37 AM MATCH MARKER Body Mass Index 37.1 09/02/2023 12:37 AM MATCH MARKER Plan of Treatment Health Maintenance Due Date Last Done Comments Hepatitis C Virus (HCV) Screening 1985 Varicella Immunization (1 of 2 - 13+ 2-dose series) 1997 Hepatitis B Immunization (1 of 3 - 19+ 3-dose series) 12/19/2003 Influenza Immunization (#1) 2025 SARS-COV-2 Immunization ( - 2024- season) 2025 Respiratory Syncytial Virus (RSV) Immunization (Adult) (1 - 1-dose 75+ series) 12/19/2059 DTaP/Tdap/Td Immunization Discontinued 01/23/2019 TdaP Immunization Completed 01/23/2019 Human Papillomavirus (HPV) Immunization (No Doses Required) Completed Meningococcal Immunization (ACWY) Aged Out No longer eligible based on patient's age to complete this topic Pneumococcal Immunization Combined Aged Out No longer eligible based on patient's age to complete this topic Rotavirus Immunization Aged Out No lo nger eligible based on patient's age to complete this topic Care Teams Retail Route Supervisor Relationship Specialty Start Date End Date Colton Khan PAC [address] [place] [address] PCP - General Physician Washery Engineer 09/02/23
--- OUTSIDE RECORDS SUMMARY | 2025-08-05 19:23 | XMS_ITS | Patient Health Record ---
Author Organization [facility] Address [address] [facility] [address] [place] [address] Care Team Providers Care Loading Inspector Name Role Phone Colton Khan PA-C Primary Care Provider Unavail able Karthikeyan Turcios Unavailable [phone] Allergies Allergen (clinical drug ingredient) Drug/Non Drug Allergy documented on EMR Reaction Allergy Type Onset Date Status Penicillin Unknown Drug Allergy Active Results Component Value Reference Range Notes UDT Reviewed date:05/12/2025 03:52:41 PM Interpretation: Performing Lab: Notes/Report: Amphetamine (AMP) neg 0 - 1000 ng/ml Buprenorphine (BUP) neg 0 - 10 ng/ml Oxazepam (BZO) neg 0 - 300 ng/ml Cocaine (CAROLYNE) neg 0 - 300 ng/ml Methamphetamine (mAMP) neg 0 - 300 ng/ml Methylenedioxymethamphetamine (MDMA) neg 0 - 500 ng/ml Morphine (MOP) neg 0 - 25 ng/ml Methadone (MTD) neg 0 - 300 ng/ml Oxycodone (OXY) neg 0 - 300 ng/ml THC pos 0 - 50 ng/ml x neg 0 - 1000 ng/ml x neg 0 - 1000 ng/ml x neg 0 - 300 ng/ml x neg 0 - 300 ng/ml Reason For Referral No Information Medications Medication SIG (Take, Route, Frequency, Duration) Notes Start Date End Date Status Mirtazapine 7.5 MG Tablet 0.5 tablet Orally nightly; Duration: 30 days 06/25/2025 Active Nac 600 600 MG Capsule 2 capsule Orally twice a day 07/16/2025 Active ARIPiprazole 2 MG Tablet 1 tablet Orally Once a day; Duration: 30 days 07/16/2025 Active buPROPion HCl ER (XL) 300 MG Tablet Extended Release 24 Hour 1 tablet every morning Orally daily; Duration: 90 days take with bupropion 150 mg tab (total dose 450 mg daily) 05/12/2025 Active buPROPion HCl ER (XL) 150 MG Tablet Extended Release 24 Hour 1 tablet in the morning Orally Once a day; Duration: 90 days take with bupropion 300 mg tab (total dose 450 mg daily) 07/16/2025 Active Testosterone 250 mg twice a week. Active Social History Tobacco Use: Social History Observation Description Date Details (start date - stop date) Never Smoker NA - NA Sex Assigned At : Social History Observation Description Sex Assigned At Male Social History Miscellaneous: Social Info Question Answer Notes Safety issues: Do you feel safe at home? Yes Are there any firearms in the house? Yes Social History Social Info Question Answer Notes Household: Marital Status: Single Number of Adults in household: 2 Number of Children in Household: 2 Level of Education: Finished High School Household: Social Info Question Answer Notes Household Marital status: single Number of adults in household: 2 Number of children in household: 2 Level of education: not finished college Drug/Alcohol: Social Info Question Answer Notes Drugs Have you used drugs other than those for medical reasons in the past 12 months? Yes Marijuana? Yes AUDIT-C (Standard) Did you have a drink containi ng alcohol in the past year? Yes How often did you have a drink containing alcohol in the past year? Monthly or less (1 point) How many drinks did you have on a typical day when you were drinking in the past year? 1 or 2 drinks (0 point) How often did you have six or more drinks on one occasion in the past year? Never (0 point) Points 1 Interpretation Negative Caffeine Intake: more than 4 cups per day 600mg to 1000 mg a day. Tobacco Use: Social Info Question Answer Notes Tobacco Control (Standard) Tobacco use: Nonsmoker Additional Details Category Social Info Options Details Miscellaneous: Occupation: [employer] Drug/Alcohol: Do you smoke marijuana? Daily, Admits Do you drink alcohol? Socially Problems Problem Type SNOMED Code ICD Code Onset Dates Problem Status W/U Status Risk Notes Problem Generalized anxiety disorder (86125954) SERGE (generalized anxiety disorder) (F41.1) Active confirmed Problem Severe recurrent major depression without psychotic features (61396055) Severe episode of recurrent major depressive disorder, without psychotic features (F33.2) Active confirmed Problem Moderate recurrent major depression (38537811) MDD (major depressive disorder), recurrent episode, moderate (F33.1) Active confirmed Problem Nondependent cannabis abuse (939964609) Marijuana use (F12.90) Active confirmed Problem Sleep disturbance (67670603) Sleep disturbance (G47.9) Active confirmed Vital Signs Heart Rate 76 /min 07/16/2025 Blood pressure diastolic 80 mm Hg 07/16/2025 Weight-kg 119.3 kg 07/16/2025 Blood pressure systolic 127 mm Hg 07/16/2025 Weight 263 lbs 07/16/2025 Encounters Encounter Location Date Provider Diagnosis [facility] [address] [place] [address] 05/12/2025 Karthikeyan Clubb Severe episode of recurrent major depressive disorder, without psychotic features F33.2 ; SERGE (generalized anxiety disorder) F41.1 ; Sleep disturbance G47.9 and Marijuana use F12.90 [facility] [address] [place] [address] 06/25/2025 Karthikeyan Clubb Marijuana use F12.90 ; Severe episode of recurrent major depressive disorder, without psychotic features F33.2 ; SERGE (generalized anxiety disorder) F41.1 and Sleep disturbance G47.9 [facility] [address] [place] [address] 07/16/2025 Karthikeyan Clubb MDD (major depressiv e disorder), recurrent episode, moderate F33.1 ; Marijuana use F12.90 ; SERGE (generalized anxiety disorder) F41.1 and Sleep disturbance G47.9 [employer] [address] [place] [address] 05/15/2025 Karthikeyan Clubb Severe episode of recurrent major depressive disorder, without psychotic features F33.2 [employer] [address] [place] [address] 06/17/2025 Karthikeyan Clubb [employer] [address] [place] [address] 06/23/2025 Karthikeyan Clubb [employer] [address] [place] [address] 06/23/2025 Karthikeyan Clubb [employer] [address] [place] [address] 06/17/2025 [employer] [facility] [address] [place] [address] 06/22/2025 Karthikeyan Turcios Assessments Encounter Date Diagnosis (ICD Code) Assessment Notes Treatment Notes Treatment Clinical Notes Section Notes 05/12/2025 SERGE (generalized anxiety disorder) (ICD-10 - F41.1) 05/12/2025 Severe episode of recurrent major depressive disorder, without psychotic features (ICD-10 - F33.2) Assessment and plan reviewed with patient Call for problems with medication, side effects or need for dosage change Compliance issues reviewed Discussed the risks/benefits of this medication Discussed medication side effects Return if symptoms worsen Treatment options reviewed. discussed that it can take weeks to see full therapeutic effects of psychotropic medications. discussed when to seek emergency services. discussed crisis prevention hotline 988. 05/15/2025 Severe episode of recurrent major depressive disorder, without psychotic features (ICD-10 - F33.2) 06/25/2025 Severe episode of recurrent major depressive disorder, without psychotic features (ICD-10 - F33.2) 06/25/2025 Marijuana use (ICD-10 - F12.90) SSRIs and Marijuana: Cannabidiol, or CBD, in marijuana can increase the levels of SSRIs in your bloodstream because CBD blocks your body from clearing the antidepressant as quickly as normal. Having increased levels of serotonin in your body from SSRI use can cause a potentially fatal condition called serotonin syndrome. 07/16/2025 MDD (major depressive disorder), recurrent episode, moderate (ICD-10 - F33.1) Assessment and plan reviewed with patient Call for problems with medication, side effects or need for dosage change Compliance issues reviewed Discussed the risks/benefits of this medication Discussed medication side effects Return if symptoms worsen Treatment options reviewed. discussed that it can take weeks to see full therapeutic effects of psychotropic medications. discussed when to seek emergency services. discussed crisis prevention hotline 988. 07/16/2025 Marijuana use (ICD-10 - F12.90) SSRIs and Marijuana: Cannabidiol, or CBD, in marijuana can increase the levels of SSRIs in your bloodstream because CBD blocks your body from clearing the antidepressant as quickly as normal. Having increased levels of serotonin in your body from SSRI use can cause a potentially fatal condition called serotonin syndrome. 05/12/2025 Sleep disturbance (ICD-10 - G47.9) encouraged sleep hygiene. 07/16/2025 SERGE (generalized anxiety disorder) (ICD-10 - F41.1) 06/25/2025 SERGE (generalized anxiety disorder) (ICD-10 - F41.1) 05/12/2025 Marijuana use (ICD-10 - F12.90) 06/25/2025 Sleep disturbance (ICD-10 - G47.9) 07/16/2025 Sleep disturbance (ICD-10 - G47.9) 05/12/2025 Other Trazodone material was printed, Bupropion material was printed 1. Major Depressive Disorder - Assessment: Patient reports symptoms consistent with major depressive disorder, including low energy, decreased concentration, difficulty sleeping, feelings of worthlessness, and passive suicidal ideation without plan or intent. He describes a negative outlook on life and isolative behaviors. The patient's anger and irritability may be secondary manifestations of depression. He denies a history of self-harm behaviors or prior suicide attempts. The patient has not been previously diagnosed with depression and has not tried antidepressant medications. - Plan: a. Start bupropion 150 mg daily for 1 week, then increase to 300 mg daily - Take in the morning - Monitor for potential side effects. b. Recommend psychotherapy- provided resources. c. Follow up to assess medication efficacy and tolerability 2. Generalized Anxiety Disorder - Assessment: Patient reports symptoms of anxiety, including excessive worry, restlessness, and feeling on edge. He describes difficulty initiating tasks due to anxiety and overthinking. The anxiety appears to be impacting his daily functioning and may be contributing to his depressive symptoms. - Plan: a. Monitor anxiety symptoms with initiation of bupropion, as it may potentially worsen anxiety initially b. Encourage stress-reduction techniques c. Consider psychotherapy to address anxiety symptoms 3. Attention-Deficit/H yperactivity Disorder - Assessment: Patient has a history of ADHD diagnosed in childhood. He reports ongoing symptoms consistent with ADHD, including difficulty sustaining attention, distractibility, forgetfulness, and difficulty organizing tasks. He has previously tried Ritalin and Adderall with some benefit but discontinued due to concerns about addictive properties. - Plan: a. Monitor ADHD symptoms with initiation of bupropion, which may provide some benefit for focus and attention b. start bupropion 150 mg for one week then increase to 300 mg. c. Provide patient education on ADHD management strategies 4. Insomnia - Assessment: Patient reports difficulty with sleep, including trouble falling asleep and staying asleep. The sleep disturbances may be contributing to his fatigue and need for excessive caffeine intake. - Plan: a. Recommend [id number] melatonin for sleep b. Start trazodone 50 mg HS as needed for sleep c. Encourage sleep hygiene practices 5. Substance Use - Assessment: Patient reports daily marijuana use, obtaining it from a dispensary. He uses both indica and sativa strains, primarily in flower form. He also reports excessive caffeine intake, consuming up to 1000 mg daily. The patient denies alcohol use or other illicit drug use. - Plan: a. Advise reduction in marijuana use - Recommend sticking to one strain for consistency - Encourage use of flower form over vapes due to lower potency b. Recommend reducing caffeine intake, especially while starting bupropion c. Provide education on potential interactions between substances and new medication 6. Testosterone Replacement Therapy - Assessment: Patient reports current use of testosterone replacement therapy, obtained from a friend that makes it. This treatment may be impacting his mood and energy levels. - Plan: a. Advise patient to establish care with a primary care provider comfortable with managing testosterone replacement therapy- provided resources to set up with PCP. b. Recommend obtaining testosterone from a legal, prescribed source c. Encourage regular monitoring of testosterone levels and overall health while on replacement therapy 7. Suicidal Ideation Monitoring - Assessment: Patient reports occasional passive suicidal thoughts without plan or intent. Has protective factors including his daughter which prevents further suicidal thoughts. No history of self-harm behaviors. - Plan: a. Monitor suicidal ideation with medication initiation b. Encourage continued connection with protective factors c. Follow up to assess safety and medication response d. discussed gun safety. 06/25/2025 Other Mirtazapine material was printed, Hydroxyzine material was published 1. Depression - Patient rates depression at 3-11/28. - Currently on bupropion 300 mg daily for approximately 3 weeks - Reports feeling more communicative and able to process thoughts better - Plan: a. Continue bupropion 300 mg daily. b. Add mirtazapine 7.5 mg at bedtime for enhanced antidepressant effect. c. Monitor for weight gain and appetite increase with mirtazapine addition. d. encourage initiation of psychotherapy 2. Anxiety - Patient rates anxiety at 12/28. - Anxiety improved when bupropion increased from 150 mg to 300 mg daily - Plan: a. Continue bupropion 300 mg daily for anxiety management. b. Monitor anxiety levels with mirtazapine addition. c. encouraged marijuana reduction d. encourage initiation of psychotherapy 3. Insomnia - Patient reports trazodone ineffective for sleep maintenance with side effects including next-day grogginess and restless legs - Falls asleep within 10-15 minutes but awakens after one hour with difficulty staying asleep - Plan: a. Discontinue trazodone due to ineffectiveness and side effects. b. Start mirtazapine 7.5 mg at bedtime for sleep and depression. c. Consider magnesium glycinate at bedtime to improve sleep quality. d. Recommend sound machine for bedroom environment and door locks to address security concerns affecting sleep. e. maintain compliance with NPPV 4. Substance Use - Successfully discontinued tobacco chewing - Continues marijuana use with decreased intake - Plan: a. Encourage continued marijuana reduction. b. Recommend avoiding street sources and using only dispensary products. c. Stick to one strain type primarily indica. 5. Medication Management - Current medications: bupropion 300 mg daily, trazodone being discontinued - Plan: a. Continue bupropion 300 mg daily. b. Discontinue trazodone. c. Start mirtazapine 7.5 mg at bedtime. d. Monitor medication adherence and side effects. 07/16/2025 Other 1. Major Depressive Disorder, recurrent, moderate PHQ-9: 6 - Assessment: Patient reports depression rated 4-5 out of 10 with some improvement in concentration on current Wellbutrin but still has room for improvement. Environmental stressors at home including relationship difficulties and concerns about children being yelled at contribute to depressive symptoms. Sleep quality has improved with less nighttime awakenings but still experiencing daytime fatigue. - Plan: a. Increase Wellbutrin to 450 mg daily (300 mg + 150 mg tablets due to insurance coverage) b. Continue taking Wellbutrin in the morning c. Start aripiprazole 2 mg at night for adjunct depression treatment - Informed of risk of akathisia (inner restlessness, feeling need to crawl out of skin) - Advised to report immediately if experiencing inability to get comfortable or excessive restlessness beyond current anxiety levels d. Therapy referral packet to be provided e. Follow-up in approximately one month 2. Generalized Anxiety Disorder with Panic Attacks SERGE-7: 7 - Assessment: Patient reports increased irritability and getting annoyed easily, particularly when not using marijuana. Anxiety appears to be exacerbated by environmental stressors at home. Hydroxyzine 25 mg three times daily as needed was tried but patient did not notice benefit. Patient experiences panic attacks and nervous breakdowns since last visit. - Plan: a. Retry hydroxyzine up to 100 mg daily (can take up to 4 tablets of 25 mg) - If one tablet ineffective, advised to take 2 tablets b. Aripiprazole 2 mg at night may also help with anxiety symptoms 3. Sleep Disturbance - Assessment: Patient reports improved sleep continuity with fewer nighttime awakenings but still experiencing significant daytime fatigue. Getting approximately 5-6 hours of sleep nightly, waking at 5:30 AM. Goes to bed around 11 PM but experiences period of wakefulness between 9 PM and 10:30 PM. Mirtazapine 7.5 mg caused excessive grogginess the next day when taken at 9 PM, leading to discontinuation. - Plan: a. Discontinue current mirtazapine regimen b. Option to cut mirtazapine in half (3.75 mg) and take earlier in evening if sleep issues persist c. Aripiprazole 2 mg at night may help with sleep d. If sleep improves with aripiprazole, mirtazapine may not be needed 4. Marijuana Use Cessation - Assessment: Patient attempting to quit marijuana use, smoked last night but reports being out of supply and not planning to purchase more. Uses marijuana primarily for anxiety and frustration management, describing it as keeping him level-headed but acknowledging overuse. Anticipates withdrawal symptoms including rebound anxiety, depression, and insomnia lasting several weeks. - Plan: a. Recommend gradual tapering rather than abrupt cessation to minimize withdrawal symptoms b. Suggested meal prepping marijuana with weekly limits for controlled reduction c. N-acetylcysteine (NAC) information to be provided as [id number] option for marijuana cravings - Available on [employer] or other retailers d. Potential for ADHD stimulant evaluation once completely off marijuana Plan Of Treatment Next Appt Details Provider Name:Karthikeyan Turcios, 08/12/2025 04:00:00 PM, [address], [place], [address], Insurance Providers Payer Name Payer Address Payer Phone Subscriber Number Group Number Insured Name Patient Relationship to Insured Coverage Start Date Coverage End Date [facility] [address] [place] [address] [id number] [phone] David Romero Self - patient is the insured Medical (General) History Medical History History ICD Code abdominal aortic aneurysm: No atrial fibrillation: No chronic fatigue syndrome: No essential tremor: No hyperlipidemia: No hypertension: No Parkinson's disease: No restless leg syndrome: No stroke: No subdural hematoma: No type 1 diabetes mellitus: No type 2 diabetes mellitus: No vitamin B12 deficiency: No vitamin D deficiency: No Surgical History Surgery Date(Month/Year) knee surgery- left Hospitalization History Reason Date(Month/Year) chest pain
--- OUTSIDE RECORDS SUMMARY | 2025-08-05 19:23 | XMS_ITS | Clinical Summary ---
Author Organization [facility] Address [address] [place] [address] Care Team Providers Care Senior Asic Design Engineer Name Role Phone Unavailable Primary Care Provider Unavailabl e Source Comments [facility],non-owned Affiliates and Associated Physician Practices is amultiple site organization consisting of ambulatory clinics and hospital sitesin [place], [place], [place] and [place]. This disclosure is being madepursuant to the Care Everywhere program and may not contain all information available regarding this patient. Last updated 18.[facility] Allergies Active Allergy Reactions Criticality Noted Date Comments Penicillins Diarrhea 01/23/2019 Medications * Be aware that medications may not be up to date on this document. Alwaysverify current medications with the patient. 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 Gender Identity Not on file Sexual Orientation Not on file Plan of Treatment Health Maintenance Due Date Last Done Comments LIPID TESTING 1984 HIV SCREENING 12/19/1999 HEPATITIS C SCREENING 12/14/2002 HEPATITIS B VACCINE (1 of 3 - 19+ 3-dose series) 12/19/2003 HPV VACCINE (1 - 3-dose SCDM series) 12/19/2011 DEPRESSION SCREENING 08/21/2024 COVID-19 VACCINE ( - 2024-2 6 season) 2025 INFLUENZA VACCINE (#1) 2025 DTAP/TDAP/TD VACCINES (2 - T d or Tdap) 01/23/2029 01/23/2019 ZOSTER VACCINE (1 of 2) 2034 HIB VACCINE Aged Out No longer eligi ble based on patient's age to complete this topic MENINGOCOCCAL (Group B) VACC INE SHARED DECISION-MAKING Aged Out No longer eligibl e based on patient's age to complete this topic MENINGOCOCCAL GROUPS A/C/Y/W VACCINE Aged Out No longer eligible b ased on patient's age to complete this topic PNEUMOCOCCAL VACCINE Aged Out No long er eligible based on patient's age to complete this topic Insurance
[2025-08-05 19:28] VITALS: BP 149/77; PULSE 107; RESP 18; TEMP 37.4; O2SAT 99
--- NOTE | 2025-08-05 20:16 | ED.SKABFB ---
HPI - Skin/Abscess/Foreign Bdy General Chief complaint: Skin/Abscess/Foreign Body Stated complaint: Skin Sore Time Seen by Provider: 08/05/25 20:17 Source: patient, RN notes reviewed and old records reviewed Mode of arrival: ambulatory Limitations: no limitations History of Present Illness HPI narrative: 39 year old male presents to express care with complaints of tenderness firmness redness to injection site of right buttock. Patient reports that he injected himself with his testosterone medication on Monday and since Monday area on right buttock feels hards and tender. MD complaint: abscess/boil Onset (ago): day(s) (2) Location: buttocks (right) Related Data Home Medications ?Medication ?Instructions ?Recorded ?Confirmed ?Last Taken ?Type aripiprazole 2 mg tablet mg 08/05/25 Unknown History bupropion HCl 150 mg 24 hr tablet, mg PO 08/05/25 Unknown History extended release bupropion HCl 300 mg 24 hr tablet, mg PO 08/05/25 Unknown History extended release hydroxyzine pamoate 25 mg capsule mg 08/05/25 Unknown History mirtazapine 7.5 mg tablet mg 08/05/25 Unknown History Allergies Allergy/AdvReac Type Severity Reaction Status Date / Time Penicillins AdvReac Mild Diarrhea Verified 08/05/25 19:40 Review of Systems Review of Systems: CONSTITUTIONAL: Denies fever, chills, or sweats. CARDIOVASCULAR: Denies chest pain, palpitations, or edema. RESPIRATORY: Denies cough or dyspnea. GASTROINTESTINAL: Denies abdominal pain, nausea, vomiting SKIN: Reports redness, tenderness and firmness to his right buttocks where he gave himself testosterone injection on Monday. Patient has no vesicles, drainage or any pustule formation of area. MUSCULOSKELETAL: Denies myalgia. NEUROLOGIC: Denies headache, numbness All systems reviewed & are unremarkable except as noted in HPI and below PMFSH Past Medical History Medical History GERD (gastroesophageal reflux disease) erosive Esohpagealitis Esophageal web GERD Dr. Kannan Moya 06/18/2020 GERD with esophagitis Hiccups Hypogonadotropic hypogonadism in male ANILA (obstructive sleep apnea) Primary localized osteoarthritis of left knee Surgical History Surgical History History of orthopedic surgery Family History Family History Mother Family history of multiple sclerosis Social History Social History Smoking status: Never smoker Second hand tobacco smoke exposure: No Alcohol intake: never Substance use: never Substance use type: does not use Spiritual care concerns: No Comments At time of signature, agree with nursing past medical, surgical, social and family history. There is no relevant family history pertinent to the presenting complaint Exam Narrative: GENERAL: Well-appearing, well-nourished, and in no acute distress. HEAD: Normocephalic, atraumatic. EYES: PERRLA and EOMI. ENT: Nares clear, no rhinorrhea or epistaxis. Mucous membranes moist. NECK: Supple.no lymphadenopathy CHEST: Clear to auscultation. No respiratory distress.SAO2 99% on room air HEART: Regular rate and rhythm. No murmur heard. Normal peripheral pulses. ABDOMEN: Soft, nontender, nondistended, normal active bowel sounds. EXTREMITIES: Normal range of motion. No edema. SKIN: Warm, dry. mild erythema, induration, tenderness, no warmth or any fluctuation of tissue right buttock where patient had done self injection of testosterone,, is tender to palpation, no vesicle or pustular formation no drainage noted NEURO: No focal deficits. Alert and oriented x3. Course Course Level of Care: Express Care Visit Vital Signs Vital signs: Vital Signs Temperature 37.4 C 08/05/25 19:28 Pulse Rate 107 H 08/05/25 19:28 Respiratory Rate 18 08/05/25 19:28 Blood Pressure 149/77 H 08/05/25 19:28 Pulse Oximetry 99 08/05/25 19:28 Oxygen Delivery Room Air 08/05/25 19:28 Temperature 37.4 C 08/05/25 19:28 Pulse Rate 107 H 08/05/25 19:28 Respiratory Rate 18 08/05/25 19:28 Blood Pressure 149/77 H 08/05/25 19:28 Pulse Oximetry 99 08/05/25 19:28 Oxygen Delivery Room Air 08/05/25 19:28 reviewed [facility] MDM Narrative Medical decision making narrative: Patient presents with complaints of pain, redness, swelling and tenderness of tissue area to right buttock where he had given self testosterone injection. No acute warmth is tender with mild firmness and redness to area on right buttock. Will treat with antibiotic, mupiricin ointment and OTC medications for any pain or fever, instructed of reasons to seek care in ED is appropriate for outpatient treatment and followup. Differential Diagnosis Differential Diagnosis: Differential diagnostic considerations for skin/abscess/foreign body issues include abscess of skin or subcutaneous tissue, viral exanthem, dermatophytosis, urticaria, herpes zoster, allergic reaction to drug, cellulitis, eczema, insect bites, impetigo, contact dermatitis, vasculitis. Critical Care Time Critical Care Time Critical Care Time: No Discharge Plan Discharge Clinical Impression: Cellulitis of right buttock Patient Disposition: Home Condition: Stable Instructions: Antibiotic Form, Cellulitis (ED) Additional Instructions: wash area with liquid Dial soap twice daily mupirocin ointment watch for any increasing infection--redness, swelling, drainage Tylenol ibuprofen for any fever pain follow up with PCP in 7-10 days for a wound check recheck if develop fever, chills, increasing symptom Go to the ER if your symptoms become worse of if ANY new symptoms develop antibiotic as prescribed take all doses If your symptoms persist, change or worsen significantly before you can contact your personal physician then please, without delay, go to the emergency department for further evaluation. Follow-up with PCP in 7-10 days or sooner if needed Follow up with PCP soon in regards to your blood pressure which is elevated above threshold for referral. Blood pressure above 120/80 may indicate pre-hypertension. my apply warm compresses or may find more comfort with cold compresses Patient Language: Afghan Prescriptions: New clindamycin HCl [Cleocin HCl] 300 mg capsule 300 mg PO Q8H Qty: 30 0RF Rx Instructions: take with food ibuprofen 600 mg tablet 600 mg PO QID PRN (Reason: fever or pain) Qty: 30 0RF Rx Instructions: take with food no more than 4 tabs daily mupirocin [Centany] 2 % ointment 1 applic topical BID Qty: 22 0RF Rx Instructions: apply to buttock No Action hydroxyzine pamoate 25 mg capsule bupropion HCl 300 mg tablet extended release 24 hr PO bupropion HCl 150 mg tablet extended release 24 hr PO mirtazapine 7.5 mg tablet aripiprazole 2 mg tablet rabeprazole 20 mg tablet,delayed release (DR/EC) See Rx Instructions .ROUTE .COMPLEX Qty: 60 3RF Dose Instruction: TAKE 1 TABLET BY MOUTH TWICE DAILY Rx Instructions: TAKE 1 TABLET BY MOUTH TWICE DAILY Follow-up/Referrals: Erin,MOHINDER Mercado [Primary Care Provider] Time of Disposition: 20:21 Quality Doris Coma Scale Eyes: Open Verbal: Oriented and Alert Motor: Follows Commands Doris Coma Total Score: 15
== END 2025-08-05 20:25 | disposition home or self-care (01) ==
PROVIDERS: Emergency Provider Registered Nurse; PCP Physician Assistant
DX: L03.317 Cellulitis of buttock (principal); K21.9 Gastro-esophageal reflux disease without esophagitis; K21.00 Gastro-esophageal reflux disease with esophagitis, without bleeding; M17.12 Unilateral primary osteoarthritis, left knee
CPT/HCPCS: 99213; G0463